=== PATIENT | female | born 1980 | race Caucasian/White ===

== ENCOUNTER 2020-06-14 08:03 | Emergency (ER) | payer OTHER, SELFPAY ==
[2020-06-14 08:08] VITALS: BP 124/82; PULSE 115; RESP 16; TEMP 36.9; O2SAT 100
--- NOTE | 2020-06-14 08:12 | ED.EYEPROB ---
HPI - Eye Problem General Chief complaint: Eye Problems Stated complaint: eye redness Time Seen by Provider: 06/14/20 08:15 Source: patient, RN notes reviewed and old records reviewed Mode of arrival: ambulatory Limitations: no limitations History of Present Illness HPI Narrative: 39 year old female who presents to [facility] with complaints of awakening this morning with her right eye red with increase watering and feeling irritated. Patient denies any acute sharp pain to her right eye or any change in her vision Patient describes her pain to her right eye as irritating, denies feelings of foreign body in her right eye, denies any yellowish drainage from her right eye. Patient states that she took her contacts out last night like she normally does and she awoke this morning with this redness, discomfort and increase in watering with photophobia. Patient's visual acuity wearing glasses noted to be 20/20 right eye, 20/40 left eye. MD chief complaint: eye redness and other (irritation) Onset (ago): hour(s) (awoke this morning with syptoms) Onset description: sudden Duration: constant Location: right eye Eye Symptoms: redness, photophobia and other (watering) Place: home Mechanism: none Severity: mild Severity scale (1-10): 3 If Pain, Quality: aching and other (irritated) Context: contact lens use Associated symptoms: none Treatments Prior to Arrival: none Related Data Home Medications Medication Instructions Recorded Confirmed dextroamphetamine-amphetamine 06/14/20 Allergies Allergy/AdvReac Type Severity Reaction Status Date / Time No Known Allergies Allergy Unverified 08/16/18 13:38 Review of Systems Review of Systems: Narrative: CONSTITUTIONAL: Denies fever, chills, or sweats. EYES: Denies visual changes, redness,of right eye with increase in watering from her right eye with feelings of irritation to her right eye. ENT: Denies rhinorrhea, congestion, sore throat, or otalgia. CARDIOVASCULAR: Denies chest pain, palpitations, or edema. RESPIRATORY: Denies cough or dyspnea. GASTROINTESTINAL: Denies abdominal pain, nausea, vomiting, or diarrhea. GENITOURINARY: Denies dysuria or hematuria. SKIN: Denies rash or itching. MUSCULOSKELETAL: Denies back pain, joint pain, or myalgia. NEUROLOGIC: Denies headache, numbness, or weakness. PSYCHIATRIC: Positive history of anxiety denies depression history. All systems reviewed & are unremarkable except as noted in HPI and below PMFSH Past Medical History Medical History (Updated 06/14/20 @ 08:32 by Geraldine De La Torre NP) ADHD Surgical History Surgical History (Updated 06/14/20 @ 08:34 by Geraldine De La Torre NP) H/O arthroscopy of right knee H/O eye surgery eye muscle surgery bilateral eyes Family History Family History Mother Family history of mental disorder Sibling Family history of mental disorder Father Carcinoma of colon Social History Social History (Updated 06/14/20 @ 08:34 by Geraldine De La Torre NP) Smoking status: Never smoker Alcohol intake: never Substance use: never Living arrangements: with family Gender identity (if verbalized by the patient): Female Comments At time of signature, agree with nursing past medical, surgical, social and family history. There is no relevant family history pertinent to the presenting complaint Exam Narrative: Exam Narrative: GENERAL: Well-appearing, well-nourished, and in no acute distress. HEAD: Normocephalic, atraumatic. EYES: PERRLA and EOMI. conjunctiva red and sclera is also red with increase watering, denies any change in vision, denies any sharp eye pain, some photophobia verbalized ENT: Nares clear, no rhinorrhea or epistaxis. Mucous membranes moist. NECK: Supple.no lymphadenopathy CHEST: Clear to auscultation. No respiratory distress. No cough SAO2 100% on room air HEART: Regular rate and rhythm. No murmur heard. Normal peripheral pulses. ABD
== END 2020-06-14 08:38 | disposition home or self-care (01) ==
PROVIDERS: Emergency Provider Registered Nurse; PCP Family Medicine
DX: H10.31 Unspecified acute conjunctivitis, right eye (principal); F90.9 Attention-deficit hyperactivity disorder, unspecified type
CPT/HCPCS: 99213; G0463

== ENCOUNTER 2021-06-20 11:51 | Emergency (ER) | payer OTHER, SELFPAY ==
[2021-06-20 11:55] VITALS: BP 133/91; PULSE 106; RESP 16; TEMP 36.6; O2SAT 100
--- NOTE | 2021-06-20 11:59 | ED.SKABFB ---
HPI - Skin/Abscess/Foreign Bdy General Chief complaint: Shortness of Breath/Dyspnea Stated complaint: Skin abcess Time Seen by Provider: 06/20/21 11:52 Source: patient and RN notes reviewed History of Present Illness HPI narrative: Patient is a 40-year-old female who presents the urgent care with complaints of a right breast abscess. Patient states that she noticed it yesterday with increased tenderness and redness this morning. Patient states that she has had the abscess in this area before, last summer. Patient states that her PCP puts her on Keflex and it goes away . Patient has not been on antibiotics for abscess since last summer. Requesting Keflex. Denies of any fever, nausea, vomiting. Patient has not done anything [id number]-[id number] for her symptoms. No other acute complaints. No acute distress noted. Patient aware of the plan of care. Some parts of this dictation were generated by voice recognition software and may contain typographical and/or grammatical inaccuracies. Related Data Allergies Allergy/AdvReac Type Severity Reaction Status Date / Time No Known Allergies Allergy Unverified 08/16/18 13:38 Review of Systems Review of Systems: CONSTITUTIONAL: Denies fever, chills, or sweats. EYES: Denies visual changes, redness, or discharge. ENT: Denies rhinorrhea, congestion, sore throat, or otalgia. CARDIOVASCULAR: Denies chest pain, palpitations, or edema. RESPIRATORY: Denies cough or dyspnea. GASTROINTESTINAL: Denies abdominal pain, nausea, vomiting, or diarrhea. GENITOURINARY: Denies dysuria or hematuria. SKIN: Reports of an abscess to the right breast MUSCULOSKELETAL: Denies back pain, joint pain, or myalgia. NEUROLOGIC: Denies headache, numbness, or weakness. All other systems reviewed are negative, except as documented in HPI. [facility] Past Medical History Medical History (Updated 06/20/21 @ 12:02 by KATHLEEN Linn) ADHD Surgical History Surgical History (Updated 06/14/20 @ 08:34 by Geraldine De La Torre NP) H/O arthroscopy of right knee H/O eye surgery eye muscle surgery bilateral eyes Family History Family History Mother Family history of mental disorder Sibling Family history of mental disorder Father Carcinoma of colon Social History Social History (Updated 06/14/20 @ 08:34 by Geraldine De La Torre NP) Smoking status: Never smoker Alcohol intake: never Substance use: never Gender identity (if verbalized by the patient): Female Comments At the time of my signature, I reviewed and agree with the nursing past medical, surgical, social, and family history. There is no relevant family history pertinent to the patient complaint. Exam Narrative: GENERAL: This is a well-nourished, well-developed patient, in no apparent distress. HEAD: normocephalic, atraumatic. EYES: PERRL. Sclera clear/white. Vision is grossly intact. EARS: External ears normal NOSE: External nose normal with no obvious nasal discharge, nares without redness, no rhinorrhea. THROAT: Mucous membranes moist NECK: Neck supple SKIN: Centimeter area of erythema to the lateral right breast with 1 cm mild tender fluctuant center without drainage NEURO: awake, alert, and oriented to person, place and time. There were no obvious focal neurologic abnormalities. EXTREMITIES: No clubbing, cyanosis, or edema. Course Course Level of Care: Express Care Visit Vital Signs Vital signs: Vital Signs Temperature 97.8 F 06/20/21 11:55 Pulse Rate 106 H 06/20/21 11:55 Respiratory Rate 16 06/20/21 11:55 Blood Pressure 133/91 H 06/20/21 11:55 Pulse Oximetry 100 06/20/21 11:55 Temperature 97.8 F 06/20/21 11:55 Pulse Rate 106 H 06/20/21 11:55 Respiratory Rate 16 06/20/21 11:55 Blood Pressure 133/91 H 06/20/21 11:55 Pulse Oximetry 100 06/20/21 11:55 Reviewed-patient is informed that they may have pre-hypertension or hypertension based on a blood
== END 2021-06-20 12:08 | disposition home or self-care (01) ==
PROVIDERS: Emergency Provider Nurse Practitioner Family
DX: N61.1 Abscess of the breast and nipple (principal)
CPT/HCPCS: 99213; G0463

== ENCOUNTER 2021-07-11 09:05 | Emergency (ER) | payer OTHER, SELFPAY ==
--- NOTE | ~2021-07-11 | CT_ITS ---
EXAMINATION: CT abdomen pelvis w con DATE: 07/11/2021 10:12 INDICATION: Right lower quadrant abdominal pain. Right groin pain. TECHNIQUE: Computed tomography (CT) of the abdomen and pelvis was performed with 100 mL Omnipaque 350 intravenous contrast. Automated exposure control and iterative reconstruction technique were employe d. The dose-length product was 905.61 mGy-cm. COMPARISON: None. FINDINGS: The visualized portions of the lung bases demonstrate minimal atelectasis. No pleural effus ion. The heart size is normal. No pericardial effusion. There is a 5 mm cyst in the liver. The gallbl adder, spleen, pancreas, adrenal glands, and right kidney are normal. There is a 10 mm mass in left k idney. There are bilateral inguinal hernias containing fat. There are no dilated loops of bowel. The appendix is normal. There is a small sliding hiatal hernia. There are no pathologically enlarged lymp h nodes. There is no free intraperitoneal fluid. There is mild thoracal lumbar spondylosis. IMPRESSION: 1. Bilateral inguinal hernias containing fat. 2. Small sliding hiatal hernia. 2. 10 mm left kidney mass, which may be a hemorrhagic cyst or less likely a neoplasm. Abdomen MRI wit hout and with contrast is recommended. Reviewed, dictated and finalized at location B. IMPRESSION: 1. Bilateral inguinal hernias containing fat. 2. Small sliding hiatal hernia. 2. 10 mm left kidney mass, which may be a hemorrhagic cyst or less likely a yesi plasm. Abdomen MRI without and with contrast is recommended.
--- NOTE | 2021-07-11 09:08 | ED.GENADULT ---
HPI - General Adult General Chief complaint: Abdominal Pain <LINA Suresh Last Filed: 07/11/21 11:01> Stated complaint: Cellulitis to right breast, hernia check <LINA Suresh Last Filed: 07/11/21 11:01> Time Seen by Provider: 07/11/21 09:07 <LINA Suresh Last Filed: 07/11/21 11:01> Source: patient <LINA Suresh Last Filed: 07/11/21 11:01> Mode of arrival: ambulatory <LINA Suresh Last Filed: 07/11/21 11:01> Limitations: no limitations <LINA Suresh Last Filed: 07/11/21 11:01> History of Present Illness HPI narrative: Patient is a 40 y/o female who presents to the ED with c/o right inguinal groin pain. Patient reports having very mild pain in her right inguinal region for the past 2 months. She is concerned she may have a hernia. She denies any increased pain with increased intra-abdominal pressure, straining, coughing, laughing. She only notes the pain when she bends over at the waist, but denies any currently when bending over in the ED bed. She has not noticed a bulge. Denies any abdominal pain, nausea, vomiting, diarrhea, constipation, fever, chills, back pain, pelvic pain, urinary sx's. Patient also reports over the last 3 weeks she has been on Keflex and Bactrim for a right breast cellulitis. She took her last dose of Bactrim today and states that area of cellulitis looks improved, but she was concerned she may need more antibiotics which is why she came to the ED today. She decided to have her right inguinal pain checked out while she was here. She has not seen a PCP for this. She has been treated for the cellulitis through urgent care. No purulent drainage. <LINA Suresh Last Filed: 07/11/21 11:01> Related Data Home medications: Home Medications Medication Instructions Recorded Confirmed buspirone mg 06/20/21 <LINA Suresh Last Filed: 07/11/21 11:01> Allergies/adverse reactions: Allergies Allergy/AdvReac Type Severity Reaction Status Date / Time No Known Allergies Allergy Unverified 08/16/18 13:38 <Mónica Dobson PA-C - Last Filed: 07/11/21 11:01> Review of Systems Review of Systems: CONSTITUTIONAL: Denies fever, chills, or sweats. CARDIOVASCULAR: Denies chest pain. RESPIRATORY: Denies dyspnea. GASTROINTESTINAL: Denies abdominal pain, nausea, vomiting, constipation, or diarrhea. GENITOURINARY: Denies dysuria or hematuria. SKIN: Denies bulge in inguinal region. MUSCULOSKELETAL: Reports R inguinal pain. Denies back pain. <Mónica Dobson PA-C - Last Filed: 07/11/21 11:01> All systems reviewed & are unremarkable except as noted in HPI and below <Mónica Dobson PA-C - Last Filed: 07/11/21 11:01> [facility] Past Medical History Medical History: Medical History (Updated 07/11/21 @ 10:51 by Mónica Dobson PA-C) ADHD Anxiety <Mónica Dobson PA-C - Last Filed: 07/11/21 11:01> Surgical History Surgical History: Surgical History H/O arthroscopy of right knee H/O eye surgery eye muscle surgery bilateral eyes <Mónica Dobson PA-C - Last Filed: 07/11/21 11:01> Family History Family History: Family History Mother Family history of mental disorder Sibling Family history of mental disorder Father Carcinoma of colon <Mónica Dobson PA-C - Last Filed: 07/11/21 11:01> Social History Social History: Social History Smoking status: Never smoker Alcohol intake: never Substance use: never Gender identity (if verbalized by the patient): Female <Mónica Dobson PA-C - Last Filed: 04/19/22 11:01> Exam Narrative: GENERAL: Well appearing, well-nourished, non-toxic, in no acute distress. HEAD: Normocephalic, atraumatic. NECK: Supple. No adenopathy, no masses. BREAST: R breast
[2021-07-11 09:10] VITALS: BP 154/95; PULSE 106; RESP 16; TEMP 36.7; O2SAT 100
[2021-07-11 09:51] LABS: Basophils Absolute Auto 0.1 K/mm3 (0.0-0.1); Basophils Percent Auto 0.7 % (0.2-1.2); Eosinophils Percent Auto 0.5 % (0-4.4); Hematocrit 43.4 % (37.0-47.0); Immature Granulocyte Absolute 0.02 K/mm3 (0.00-0.031); Immature Granulocyte Percent A 0.3 % (0-0.5); Lymphocytes Absolute Auto 1.94 K/mm3 (0.9-3.2); Lymphocytes Percent Auto 25.5 % (18.3-44.2); Mean Corpuscular HGB Conc 32.3 g/dl (32-36); Mean Corpuscular Hemoglobin 28.9 pg (26-34); Mean Corpuscular Volume 89.5 fl (80-100); Mean Platelet Volume 8.9 fl (7.4-10.4); Monocytes Absolute Auto 0.5 K/mm3 (0.1-0.6); Platelet Count Result 329 k/mm3 (150-375); Red Blood Count 4.85 M/mm3 (4.2-5.4); Red Cell Distribution Width 13.7 % (11.5-14.5); White Blood Count 7.6 K/mm3 (4.5-10.0)
[2021-07-11 09:53] LABS: Appearance Urine Clear (Clear); Bilirubin Urine Negative (Negative); Color Urine Yellow (Yellow); Glucose Urine UA Negative (Negative); Ketones Urine Negative (Negative); Leukocyte Esterase Ur Negative LEU/UL (Negative); Nitrate Urine Negative (Negative); Protein Urine Negative (Negative); Urobilinogen Urine 0.2 mg/dL (<2.0)
[2021-07-11 09:55] LABS: Alanine Aminotransferase 13 U/L (4-35); Albumin Level 4.8 g/dL (3.5-5.1); Alkaline Phosphatase 80 U/L (38-126); Anion Gap 9 mmol/L (8-16); Aspartate Amino Transferase 20 U/L (14-36); Bilirubin,Total 0.3 mg/dL (0.2-1.3); Blood Urea Nitrogen 7 mg/dL (7-17); Calcium 9.3 mg/dL (8.4-10.2); Carbon Dioxide 24 mmol/L (22-30); Chloride 105 mmol/L (98-107); Estimated CRCL calculation 104 ml/min; Estimated Glomerular Filt Rate > 60; Glucose 124 mg/dL (65-110); Potassium 3.6 mmol/L (3.4-5.0); Sodium 138 mmol/L (137-145)
[2021-07-11 09:57] LABS: Bacteria Urine Trace /hpf; Mucus Urine Rare /lpf; Squamous Epithelial Cell Urine Many /hpf (Few); WBC Urine 0-3 /hpf
[2021-07-11 10:03] LABS: Add Urine Microscopic? YES; Blood Urine Trace-Intact (Negative)
[2021-07-11 10:59] VITALS: BP 151/97; PULSE 96; RESP 18; O2SAT 100
== END 2021-07-11 11:00 | disposition home or self-care (01) ==
PROVIDERS: Physician Assistant; Emergency Provider Emergency Medicine
DX: K40.20 Bilateral inguinal hernia, without obstruction or gangrene, not specified as recurrent (principal); N28.9 Disorder of kidney and ureter, unspecified; F90.9 Attention-deficit hyperactivity disorder, unspecified type; F41.9 Anxiety disorder, unspecified
CPT/HCPCS: 36415; 74177; 80053; 81001; 81025; 85025; 99284; Q9967

== ENCOUNTER 2021-09-15 11:02 | Emergency (ER) | payer OTHER, SELFPAY ==
--- NOTE | ~2021-09-15 | XR_ITS ---
EXAMINATION: XR ankle RT min 3V DATE: 09/15/2021 11:36 INDICATION: Lateral right ankle pain and swelling post injury TECHNIQUE: Anteroposterior, oblique, mortise, and lateral views of the right ankle were obtained. COMPARISON: None. FINDINGS: Very small minimally distracted avulsion fracture fragment at the tip of the lateral malleolus. Align ment is otherwise normal. No other fractures identified. Joint spaces are normal. Moderate-sized Achi lles calcaneal spur. Soft tissue swelling about the lateral malleolus. No evident right ankle joint e ffusion. IMPRESSION: 1. Minimal distraction of a very small avulsion fracture fragment at the tip of the lateral malleolus . Reviewed, dictated and finalized at location B. IMPRESSION: 1. Minimal distraction of a very small avulsion fracture fragment at the tip of the lateral malleolus.
[2021-09-15 11:18] VITALS: BP 133/68; PULSE 93; RESP 18; TEMP 37; O2SAT 100
--- NOTE | 2021-09-15 11:45 | ED.LOWEXIN ---
HPI - Extremity Injury (Lower) General Chief Complaint: Extremity Injury, Lower Stated Complaint: right ankle xray Time Seen by Provider: 09/15/21 11:45 Source: patient, RN notes reviewed and old records reviewed Mode of arrival: ambulatory Limitations: no limitations History of Present Illness HPI Narrative: 41 ear old female who present to express care with complaint of injury to her right ankle at 0700 this morning when she was walking on the walking trail and stepped into a hole twisting her right ankle. Patient has swelling noted to lateral aspect of her right ankle with some bruising noted. Patient reports pain is constant throbbing and increased with any weight bearing. Patient has applied ice, elevated ankle applied riley wrap and has taken Tylenol for her discomfort. Patient reports that she has bilateral inguinal hernia which she is scheduled to have repaired in the next few weeks and on CT scan a renal mass was identified that she is undergoing further evaluation with a urologist. complaint: ankle injury (right) Onset (ago): hour(s) (4) Injury: Right: ankle Severity scale (1-10): 4 Treatments prior to arrival: cold therapy and other (riley, Tylenol) Related Data Home Medications Medication Instructions Recorded Confirmed buspirone 10 mg tablet 10 mg PO BID 08/01/21 09/15/21 Allergies Allergy/AdvReac Type Severity Reaction Status Date / Time No Known Allergies Allergy Verified 09/15/21 11:17 Review of Systems Review of Systems: CONSTITUTIONAL: Denies fever, chills, or sweats. EYES: Denies visual changes, redness, or discharge. ENT: Denies rhinorrhea, congestion, sore throat, or otalgia. CARDIOVASCULAR: Denies chest pain, palpitations, or edema. RESPIRATORY: Denies cough or dyspnea. GASTROINTESTINAL: Denies abdominal, nausea, vomiting, or diarrhea. GENITOURINARY: Denies dysuria or hematuria. SKIN: Denies rash or itching. MUSCULOSKELETAL: Denies back pain, positive for right ankle joint pain, or myalgia. NEUROLOGIC: Denies headache, numbness, or weakness. PSYCHIATRIC: Positive for history of anxiety or depression. [facility] Past Medical History Medical History ADHD Anxiety Surgical History Surgical History H/O arthroscopy of right knee H/O eye surgery eye muscle surgery bilateral eyes [place] teeth extracted Family History Family History Mother Family history of mental disorder Sibling Family history of mental disorder Father Carcinoma of colon Social History Social History Smoking status: Never smoker Second hand tobacco smoke exposure: No Alcohol intake: never Substance use: current Substance use type: marijuana Other substance usage details: MEDICAL MARIJUANA 2.5 OZ EVERY 2 WEEKS Last use: 08/09/21 Additional occupation/education comments: [employer] Gender identity (if verbalized by the patient): Female Spiritual care concerns: No Comments At time of signature, agree with nursing past medical, surgical, social and family history. There is no relevant family history pertinent to the presenting complaint Exam Narrative: GENERAL: Well-appearing, well-nourished, obese and in no acute distress. HEAD: Normocephalic, atraumatic. EYES: PERRLA and EOMI. ENT: Nares clear, no rhinorrhea or epistaxis. Mucous membranes moist.TM's normal with good light reflex, throat pink with no lesions or exudates or tonsil swelling NECK: Supple.no lymphadenopathy CHEST: Clear to auscultation. No respiratory distress.SAO2 100% on room air HEART: Regular rate and rhythm. No murmur heard. Normal peripheral pulses ABDOMEN: Soft, nontender, nondistended, normal active bowel sounds. EXTREMITIES: Normal range of motion. No edema.Exception noted to right ankle which is p
== END 2021-09-15 12:25 | disposition home or self-care (01) ==
PROVIDERS: Emergency Provider Registered Nurse; PCP Internal Medicine
DX: S82.61XA Displaced fracture of lateral malleolus of right fibula, initial encounter for closed fracture (principal); X50.9XXA Other and unspecified overexertion or strenuous movements or postures, initial encounter; F41.9 Anxiety disorder, unspecified
CPT/HCPCS: 73610; 99213; G0463